=== PATIENT | male | born 1995 | race Hispanic/Latino ===

== ENCOUNTER 2022-08-16 06:56 | Observation (INO) | payer OTHER, SELFPAY ==
[2022-08-16 08:29] LABS: Absolute Lymphocytes (CBC) 2.1 K/uL (0.7-4.9); Hematocrit 46.9 % (39.6-49.0); Lymphocytes % 19.9 % (15.3-44.8); MCV 93.5 fL (80-100); MPV 8.6 fL (7.6-11.3); RBC Red Blood Cell Count 5.02 M/uL (4.33-5.43)
[2022-08-16] MEDS ORDERED: NA CHLORIDE 0.9% 1,000 ML ONE (08:41)
[2022-08-16] MEDS ORDERED: FAMOTIDINE 20 MG/2 ML VIAL IV ONE (08:41)
[2022-08-16] MEDS ORDERED: ONDANSETRON 4 MG/2 ML VIAL ONE ×2 (08:41→14:03)
[2022-08-16 08:43] LABS: Albumin 4.2 g/dL (3.4-5.0); Bilirubin Total 0.7 mg/dL (0.2-1.0); Potassium 4.3 mEq/L (3.5-5.1); Protein, Total 8.5 g/dL (6.4-8.2)
--- NOTE | 2022-08-16 10:23 | EDPHYS ---
Physician Documentation [facility] Name: Lele García Age: 27 yrs Sex: Male : 1995 Arrival Date: 08/16/2022 Time: 07:13 Bed 5 Private MD: ED Physician Darryl Briones HPI: 08/16 08:05 This 27 yrs old Male presents to ER via Ambulatory with complaints of ms3 Abdominal pain. 08:05 27-year-old male with no past medical history presents for abdominal pain that began on ms3 Tuesday morning. Patient states he ate spicy Panda rice on Tuesday morning and experienced sharp abdominal pain that lasted for approximately 6 hours. After the pain subsided patient then ate additional rice and states his pain has been ongoing since that time. Patient endorses vomiting, and sharp right lower quadrant abdominal pain. Patient rates the pain a /10.. Historical: - Allergies: 07:34 No Known Allergies; aa5 - PMHx: 07:34 None; aa5 - PSHx: 07:34 None; aa5 - Immunization history:: Adult Immunizations unknown. - Social history:: Smoking status: Reported history of juuling and/or vaping. ROS: 08:05 Constitutional: Negative for fever, and chills. Neck: Negative for injury, pain, and ms3 swelling, Cardiovascular: Negative for chest pain, and palpitations. Respiratory: Negative for shortness of breath, cough, wheezing, and pleuritic chest pain. 08:05 Skin: Negative for injury, rash, and discoloration, Neuro: Negative for headache, weakness, numbness, tingling. 08:05 Abdomen/GI: Positive for abdominal pain, nausea and vomiting, constipation. 08:05 All other systems are negative. Exam: 08:05 Constitutional: This is a well developed, well nourished patient who is awake, alert, ms3 and in no acute distress. Head/Face: Normocephalic, atraumatic. Neck: Trachea midline, no cervical lymphadenopathy. Supple, full range of motion without nuchal rigidity, or vertebral point tenderness. No Meningismus. Chest/axilla: Normal chest wall appearance and motion. Nontender with no deformity. Cardiovascular: Regular rate and rhythm with a normal S1 and S2. No gallops, murmurs, or rubs. Normal PMI, no JVD. No pulse deficits. Respiratory: Lungs have equal breath sounds bilaterally, clear to auscultation and percussion. No rales, rhonchi or wheezes noted. No increased work of breathing, no retractions or nasal flaring. 08:05 Skin: Warm, dry with normal turgor. Normal color with no rashes, no lesions, and no evidence of cellulitis. MS/ Extremity: Pulses equal, no cyanosis. Neurovascular intact. Full, normal range of motion. 08:05 Abdomen/GI: Inspection: abdomen appears normal, Bowel sounds: normal, Palpation: moderate abdominal tenderness, in the right lower quadrant. Vital Signs: 07:33 BP 118 / 80; Pulse 73; Resp 16 S; Temp 98.2(O); Pulse Ox 100% on R/A; Weight 61.23 kg aa5 (R); Height 5 ft. 2 in. (R); 08:48 BP 116 / 83; Pulse 65; Resp 16; Pulse Ox 99% ; bp 09:21 BP 122 / 79; Pulse 71; Resp 16; Pulse Ox 99% ; bp 11:33 BP 110 / 75; Pulse 76; Resp 16; Pulse Ox 97% ; bp 07:33 Body Mass Index 24.69 (61.23 kg, 157.48 cm) aa5 MDM: 07:55 Patient medically screened. ms3 08:05 Differential diagnosis: appendicitis, bowel obstruction, non-specific abd pain. ms3 10:36 Data reviewed: vital signs, nurses notes, lab test result(s), radiologic studies, and ms3 as a result, I will discharge patient. Consideration of Admission/Observation Patient was admitted/placed on observation. Management of patient was discussed with the following: Client Project Coordinator: Dr Marquez. I considered the following discharge prescriptions or medication management in the emergency department Medications were administered in the Emergency Department. See MAR. Counseling: I had a detailed discussion with the patient and/or guardian regarding: the historical points, exam findings, and any diagnostic results supporting the discharge/admit diagnosis, lab results, radiology results, the need for further work-up and treatment in the hospital. ED course: Discussed CT findings for acute appendicitis with patient. Patient agrees with observation. Discussed case with Dr. Marquez and patient to be placed in observation, given antibiotics, and made NPO.. 08/16 08:05 Order name: CBC with Diff; Complete Time: 08:52 ms3 08/16 08:05 Order name: CMP; Complete Time: 08:52 ms3 08/16 08:05 Order name: Lipase; Complete Time: 08:52 ms3 08/16 08:05 Order name: CT Abd/Pelvis - IV Contrast Only; Complete Time: 10:24 ms3 08/16 10:37 Order name: NPO; Complete Time: 11:38 EDMS 08/16 08:05 Order name: IV Saline Lock; Complete Time: 08:16 ms3 08/16 08:05 Order name: Labs collected and sent; Complete Time: 08:16 ms3 Administered Medications: 08:20 Drug: NS 0.9% IV 1000 ml Route: IV; Rate: 1 bolus; Site: right antecubital; bp 10:39 Follow up: IV Status: Completed infusion; IV Intake: 1000ml bp 08:20 Drug: Ondansetron IVP 4 mg Route: IVP; Site: right antecubital; bp 10:39 Follow up: Response: No adverse reaction bp 08:20 Drug: Famotidine IVP 20 mg Route: IVP; Site: right antecubital; bp 10:40 Follow up: Response: No adverse reaction bp 10:39 Drug: Piperacillin-Tazobactam IVPB 3.375 grams Route: IVPB; Infused Over: 60 mins; bp Site: right antecubital; 11:37 Follow up: IV Status: Completed infusion; IV Intake: 100ml bp Disposition Summary: 08/16/22 10:22 Hospitalization Ordered Hospitalization Status: Observation ms3 Provider: Bryon Marquez ms3 [facility] ms3 Condition: Stable ms3 Problem: new ms3 Symptoms: are unchanged ms3 Bed/Room Type: Standard ms3 Room Assignment: 407(08/16/22 11:03) bd Diagnosis - Unspecified acute appendicitis ms3 Forms: - Medication Reconciliation Form ms3 - SBAR form ms3 Signatures: Dispatcher [employer] Georgette Orozco Audri RN RN aa5 Josr Navas RN RN bp Darryl Briones DO DO ms3 Corrections: (The following items were deleted from the chart) 07:34 07:34 PSHx: Unable to Obtain; aa5 aa5 11:03 10:22 ms3 bd
--- NOTE | 2022-08-16 10:23 | RAD REPORT ---
EXAM DESCRIPTION: CT - Abdomen Pelvis W Contrast - 08/16/2022 9:18 am CLINICAL HISTORY: ABD PAIN COMPARISON: No comparisons TECHNIQUE: Thin cut axial CT imaging of the abdomen and pelvis was performed following intravenous a dministration of 95 mL Isovue 300. Multiplanar reformats were generated and reviewed. All CT scans are performed using dose optimization technique as appropriate and may include automated exposure control or mA/KV adjustment according to patient size. FINDINGS: No suspicious findings in the lung bases. The liver, spleen, and pancreas show no suspicious findings. Gallbladder and biliary tree are also wi thout suspicious finding. Symmetric renal function is seen with no hydronephrosis or suspicious renal mass. No dilated bowel loops or bowel wall thickening. No free air or free fluid. The appendix is distended with fluid along its distal aspect, and prominent, measuring 1.2 centimeter in caliber. Mucosal hype renhancement along its proximal aspect, with mild adjacent fat stranding. No periappendiceal fluid co llection or extraluminal gas. No hernia, mass or bulky lymphadenopathy. The urinary bladder is withou t significant finding. No suspicious bony findings. IMPRESSION: Findings of acute uncomplicated appendicitis as above. The findings were communicated to Jacques Ashton on 08/16/2022 at 10:19 hours.
--- NOTE | 2022-08-16 10:23 | ER ---
Nurse's Notes [facility] Name: Lele García Age: 27 yrs Sex: Male : 1995 Arrival Date: 08/16/2022 Time: 07:13 Bed 5 Private MD: Diagnosis: Unspecified acute appendicitis Presentation: 08/16 07:33 Chief complaint: Patient states: abd pain that began Tuesday night, pt reports aa5 vomiting Tuesday night and denies any more vomiting. Coronavirus screen: vomiting. Ebola Screen: Patient denies travel to an Ebola-affected area in the 21 days before illness onset. Initial Sepsis Screen: Does the patient meet any 2 criteria? No. Patient's initial sepsis screen is negative. Does the patient have a suspected source of infection? No. Patient's initial sepsis screen is negative. Risk Assessment: Do you want to hurt yourself or someone else? Patient reports no desire to harm self or others. Onset of symptoms was July 2022. 07:33 Acuity: CORRY 3 aa5 07:33 Method Of Arrival: Ambulatory aa5 Triage Assessment: 07:40 General: Appears in no apparent distress. Behavior is cooperative, appropriate for age. bp Pain: Complains of pain in abdomen. EENT: No deficits noted. Neuro: No deficits noted. Cardiovascular: No deficits noted. Respiratory: No deficits noted. GI: No signs and/or symptoms were reported involving the gastrointestinal system. : No signs and/or symptoms were reported regarding the genitourinary system. Derm: No deficits noted. Musculoskeletal: No deficits noted. Historical: - Allergies: 07:34 No Known Allergies; aa5 - PMHx: 07:34 None; aa5 - PSHx: 07:34 None; aa5 - Immunization history:: Adult Immunizations unknown. - Social history:: Smoking status: Reported history of juuling and/or vaping. Screenin:40 [facility] ED Fall Risk Assessment (Adult) History of falling in the last 3 months, bp including since admission No falls in past 3 months (0 pts). Abuse screen: Denies threats or abuse. Denies injuries from another. Nutritional screening: No deficits noted. Tuberculosis screening: No symptoms or risk factors identified. Assessment: 07:40 General: SEE TRIAGE NOTE. bp 08:48 Reassessment: No changes from previously documented assessment. CT PENDING. bp 09:21 Reassessment: PT RETURNED FROM CT. bp 11:37 Reassessment: ADMIT IN PROCESS FOR ACUTE APPY. bp 12:35 Reassessment: Patient is alert, oriented x 3, equal unlabored respirations, skin aa5 warm/dry/pink. Vital Signs: 07:33 BP 118 / 80; Pulse 73; Resp 16 S; Temp 98.2(O); Pulse Ox 100% on R/A; Weight 61.23 kg aa5 (R); Height 5 ft. 2 in. (R); 08:48 BP 116 / 83; Pulse 65; Resp 16; Pulse Ox 99% ; bp 09:21 BP 122 / 79; Pulse 71; Resp 16; Pulse Ox 99% ; bp 11:33 BP 110 / 75; Pulse 76; Resp 16; Pulse Ox 97% ; bp 07:33 Body Mass Index 24.69 (61.23 kg, 157.48 cm) aa5 ED Course: 07:13 Patient arrived in ED. rg4 07:33 Arm band placed on. aa5 07:34 Triage completed. aa5 07:37 Darryl Briones DO is Attending Physician. ms3 07:37 Josr Navas, RN is Primary Nurse. bp 07:40 Patient has correct armband on for positive identification. Bed in low position. Call bp light in reach. Side rails up X2. 08:15 Inserted saline lock: 20 gauge in right antecubital area, using aseptic technique. bp Blood collected. 09:19 CT Abd/Pelvis - IV Contrast Only In Process Unspecified. EDMS 10:22 Bryon Marquez MD is Hospitalizing Provider. ms3 12:38 No provider procedures requiring assistance completed. Patient admitted, IV remains in aa5 place. Administered Medications: 08:20 Drug: NS 0.9% IV 1000 ml Route: IV; Rate: 1 bolus; Site: right antecubital; bp 10:39 Follow up: IV Status: Completed infusion; IV Intake: 1000ml bp 08:20 Drug: Ondansetron IVP 4 mg Route: IVP; Site: right antecubital; bp 10:39 Follow up: Response: No adverse reaction bp 08:20 Drug: Famotidine IVP 20 mg Route: IVP; Site: right antecubital; bp 10:40 Follow up: Response: No adverse reaction bp 10:39 Drug: Piperacillin-Tazobactam IVPB 3.375 grams Route: IVPB; Infused Over: 60 mins; bp Site: right antecubital; 11:37 Follow up: IV Status: Completed infusion; IV Intake: 100ml bp Medication: 07:40 VIS not applicable for this client. bp Intake: 10:39 IV: 1000ml; Total: 1000ml. bp 11:37 IV: 100ml; Total: 1100ml. bp Outcome: 10:22 Decision to Hospitalize by Provider. ms3 12:35 Admitted to Med/surg accompanied by tech, via wheelchair, with chart, Report called to jeanne Garza RN 12:35 Condition: stable 12:35 Instructed on the need for admit, Demonstrated understanding of instructions. 12:38 Patient left the ED. [email or web address] Signatures: Dispatcher [employer] EDEusebia Sommers, RN RN aaAida [email or web address] Josr Navas RN RN Darryl Fischer, DO ms3 Corrections: (The following items were deleted from the chart) 07:34 07:34 PSHx: Unable to Obtain; aa5 [email or web address]
[2022-08-16] MEDS ORDERED: NA CHLORIDE 0.9% 0 ML ONE (10:29)
[2022-08-16] MEDS ORDERED: PIPERACIL/TAZO 3.375 GM VIAL IV ONE (10:30)
[2022-08-16] MEDS ORDERED: ONDANSETRON 4 MG/2 ML VIAL IV PRN ×2 (10:32→15:04)
[2022-08-16] MEDS ORDERED: MORPHINE 4 MG/ML SYR IV PRN (10:35)
[2022-08-16] MEDS: D5 0.45 NS 1,000 ML IV SCH ×2 (13:06→23:20)
[2022-08-16 13:09] VITALS: BMI 24.7
[2022-08-16] MEDS ORDERED: Ringers Lactate 1,000 ML IV ONE (13:40)
[2022-08-16] MEDS ORDERED: CEFOXITIN SODIUM 1 GM/VIAL ONE (13:55)
[2022-08-16] MEDS ORDERED: propofoL 200 MG/20 ML VIAL IV ONE (14:00)
[2022-08-16] MEDS ORDERED: FENTANYL CITR 100 MCG/2 ML ONE (14:02)
[2022-08-16] MEDS ORDERED: MIDAZOLAM HCL 2 MG/2 ML INJ ONE (14:03)
[2022-08-16] MEDS ORDERED: ROCURONIUM 50 MG/5 ML VIAL IV ONE (14:03)
[2022-08-16] MEDS ORDERED: LIDOCAINE 2% MPF 5 ML VIAL ONE (14:03)
--- NOTE | 2022-08-16 14:04 | P.HP ---
Date of Service: 08/16/22 Chief complaint: Abdominal pain History of present Illness: Patient is a 27-year-old gentleman presents to the emergency room with 2-day history of diffuse abdominal pain localizing to the right lower quadrant. Pain is associated with nausea and vomiting. Patient felt a little better yesterday and stayed home but this morning his symptoms returned. Patient denies sore throat, runny nose, cough, headaches, dizziness, chest pain, fever or chills currently. Patient denies diarrhea, constipation, blood per rectum, dysuria or hematuria. Review of systems: Otherwise unremarkable Past medical history: Negative Past surgical history: Negative Allergies: Negative Social history: Negative, last vaped a month ago Family history: Noncontributory Vital signs: Stable, afebrile Physical exam: Awake alert oriented x3 Head and neck: No neck masses Chest: Clear Heart: S1-S2 Abdomen: Soft, nondistended, positive bowel sounds, right lower quadrant tenderness with rebound and Rovsing's sign. Extremity: Neurovascular intact, nontender Neuro: Nonfocal Diagnostic data: White count is normal, CT of the abdomen pelvis is consistent with acute appendicitis Assessment: Acute appendicitis Plan/recommendation: Admit, n.p.o., IV fluids, IV antibiotics and to the OR for laparoscopic appendectomy possible open. Patient understands risks, benefits and alternatives and agrees to procedure. CC:
[2022-08-16] MEDS ORDERED: NEOSTIGMINE 1 MG/ML -10 ML VIAL ONE (14:49)
[2022-08-16] MEDS ORDERED: GLYCOPYRROLATE 0.2 MG/ML SYR ONE (14:49)
[2022-08-16] MEDS ORDERED: KETOROLAC 30 MG/ML INJ ONE (14:49)
--- NOTE | 2022-08-16 14:57 | P.OP ---
Date of Service: 08/16/22 Preop diagnosis: Acute appendicitis Postop diagnosis: Same, umbilical hernia Procedure performed: Laparoscopic appendectomy, repair of umbilical hernia Surgeon: Bryon Marquez MD Wheel Roller: None Estimated blood loss: Minimal Specimen: Appendix, hernia sac and contents Findings: As above Anesthesia: General Complications: None Drains: None Fluids and blood products: Nonapplicable Disposition: Recovery room Operative note: Patient brought to the OR and placed in the supine position. General anesthesia begun. Patient prepped and draped in the usual sterile fashion. Marcaine 0.5% infiltrated locally. 15 blade used to make a 1 cm supraumbilical midline incision. Small hernia defect present. Hernia sac and contents excised. A 1 cm defect remained. #1 Vicryl stay suture placed. Peritoneal cavity entered with sharp and blunt dissection. 12 mm trocar placed into the peritoneal cavity under direct vision. Pneumoperitoneum established and two 5 mm trocars placed. 1 trocar placed in the suprapubic region and the other placed in the left lower quadrant. Laparoscopy revealed acute appendicitis with the appendix in the pelvis. Appendix was dilated with injected vessels and early suppuration. Endo EFREN stapling device used to divide the mesoappendix and the base of the appendix. The appendix was removed via Endo Catch bag. The appendix sent to pathology. Minimal oozing noted from the appendiceal vessel. This was easily controlled with 5 mm clips. Right lower quadrant irrigated and effluent clear. There was no evidence of bleeding or bowel injury appreciated. All trocars removed under direct vision. Stay sutures tied to each other to reapproximate the fascial and hernia defect. Subcutaneous wounds irrigated and bleeding controlled with cautery. 3-0 chromic used to reapproximate subcutaneous tissue. Staple used to close skin. Sterile dressing applied. Patient awakened and taken to recovery room in good general condition. CC:
[2022-08-16] MEDS ORDERED: HYDROCODONE/APAP 7.5/325 MG TAB PO PRN (15:04)
[2022-08-16] MEDS ORDERED: HYDROMORPHONE HCL 1 MG/ML INJ IV PRN ×2 (15:04→23:06)
[2022-08-16] MEDS: HYDROMORPHONE HCL 1 MG/ML INJ ONE ×3 (15:20→15:35)
[2022-08-16] MEDS ORDERED: HYDROMORPHONE HCL 1 MG/ML INJ ONE (15:33)
[2022-08-16] MEDS: PIPER TAZO 3.375 GM in NA CHLORIDE 0.9% 100 ML IV SCH (16:05)
[2022-08-16] MEDS ORDERED: NA CHLORIDE 0.9% 500 ML IV ONE (23:05)
[2022-08-17] MEDS: PIPER TAZO 3.375 GM in NA CHLORIDE 0.9% 100 ML IV SCH (01:16)
[2022-08-17] MEDS: HYDROCODONE/APAP 5/325 MG TAB PO PRN ×2 (02:43→08:52)
[2022-08-17 06:10] LABS: Absolute Lymphocytes (CBC) 2.1 K/uL (0.7-4.9); Lymphocytes % 20.7 % (15.3-44.8); MPV 8.8 fL (7.6-11.3); RBC Red Blood Cell Count 4.04 M/uL (4.33-5.43)
[2022-08-17] MEDS: D5 0.45 NS 1,000 ML IV SCH (07:00)
[2022-08-17 08:03] VITALS: BP 113/62; TEMP 97.5
--- NOTE | 2022-08-17 09:17 | DS ---
Date of Discharge: 08/17/2022 Admitting Diagnosis: Acute appendicitis. Discharge Diagnosis: Acute appendicitis. Procedure Performed: Laparoscopic appendectomy. Hospital Course: The patient is a 27-year-old gentleman, who underwent lap appy yesterday and postop eratively he had some difficulty urinating, which he has done since that time, and his H and H were l ower, but mostly appears to be because of dehydration. Clinically, he is tolerating diet, ambulating , pain controlled with p.o. pain medications, and afebrile. Therefore, we will check another H and H this morning. Should be stable, we will clear the patient for discharge. Disposition: Home. Condition: Stable. Discharge Instructions: Resume home medications and diet. Activity as tolerated. No heavy lifting. Remove outer dressing in a.m., shower. Keep wound clean and dry. Follow up my office in a week. Call for appointment. Abbey and Herminio called into the patient's pharmacy. /YFNL Voice ID: [id number] Report ID: [id number]
[2022-08-17 09:30] VITALS: O2SAT 97
[2022-08-17 10:03] LABS: Absolute Lymphocytes (CBC) 1.8 K/uL (0.7-4.9); Hematocrit 39.8 % (39.6-49.0); Lymphocytes % 21.1 % (15.3-44.8); MCV 94.4 fL (80-100); MPV 8.8 fL (7.6-11.3); RBC Red Blood Cell Count 4.21 M/uL (4.33-5.43)
== END 2022-08-17 10:56 | disposition home or self-care (01) ==
LOC: ER 06:56 → ERHOLD 10:33 → 4TH 12:30
PROVIDERS: ADMIT Surgery; ATTEND Surgery
PROC: 0DTJ4ZZ Resection of Appendix, Percutaneous Endoscopic Approach (ICD-10-PCS; principal; 2022-08-16 14:00)
DX: K35.80 Unspecified acute appendicitis (principal); K42.9 Umbilical hernia without obstruction or gangrene; R11.2 Nausea with vomiting, unspecified
CPT/HCPCS: 36415; 74177; 80053; 83690; 85025; 88302; 88304; 94010; 96361; 96365; 96375; 99285; G0378; J0694; J1170; J2001; J2250; J2405; J2543; J2704; J2710; J3010; J7030; J7040; J7120; J7799; Q9967